=== PATIENT | male | born 1940 | race Caucasian/White ===

== ENCOUNTER → 2020-06-14 11:04 | Outpatient (CLI) | payer MEDICARE, SELFPAY ==
--- NOTE | 2020-06-14 | XR_ITS ---
PROCEDURE: XR KNEE LT 3V CLINICAL INDICATION: PAIN IN LT KNEE COMPARISON: No exams were available for comparison FINDINGS: No fracture or dislocation. No lytic or blastic change. There is normal mineralization. There are mild osteoarthritic changes of the medial compartment and patellofemoral joint. There may be a small knee joint effusion. There is diffuse vascular calcification. Other findings:None. IMPRESSION: Mild osteoarthritic changes Dictated by: Wilian Pollock MD 06/14/2020 11:37 Wilian Pollock MD in [place] 06/14/2020 11:37
--- NOTE | 2020-06-14 | XR_ITS ---
PROCEDURE: XR KNEE RT 3V CLINICAL INDICATION: PAIN IN RT KNEE COMPARISON: No exams were available for comparison FINDINGS: No fracture or dislocation. No lytic or blastic change. There is normal mineralization. Moderate osteoarthritic change medial compartment and patellofemoral joint. Other findings:There is diffuse vascular calcification IMPRESSION: Osteoarthritis Dictated by: Wilian Pollock MD 06/14/2020 11:36 Wilian Pollock MD in [place] 06/14/2020 11:36
== END ==
PROVIDERS: PCP Family Medicine; Visit Provider Family Medicine
DX: M25.562 Pain in left knee (principal); M25.561 Pain in right knee
CPT/HCPCS: 73562

== ENCOUNTER 2020-07-13 11:49 | Emergency (ER) | payer MEDICARE, SELFPAY ==
[2020-07-13 11:50] VITALS: BP 183/86; PULSE 68; RESP 16; TEMP 36.4; O2SAT 100; BMI 28.3
--- NOTE | 2020-07-13 11:54 | HMH.EDGENADL ---
ED Disposition Clinical Impression: Strain of left knee Qualifiers: Encounter type: initial encounter Qualified Code(s): S86.912A - Strain of unspecified muscle(s) and tendon(s) at lower leg level, left leg, initial encounter Disposition: Home, Self-Care Condition on Discharge: Good Instructions: DI for Knee Pain Referrals: Rigo Carvajal MD [Primary Care Provider] - 3 days Time of Disposition: 12:42 - Critical Care Critical Care Time: No Attestation: On , the high probability of a clinically significant, sudden or life threatening deterioration of the following system(s) required my full and direct attention, intervention and personal management. The time I documented below is in addition to time spent performing reported procedures but includes the following listed in this critical care notation. Medical Decision Making - Medical Records Medical records reviewed: Yes: I reviewed the patient's medical records. - Maykel Inquiry Pt receiving controlled substance: No Vital Signs: 07/13/20 11:50 07/13/20 12:01 Temperature 97.6 F Temperature Source Oral Pulse Rate 61 Pulse Rate [Right Radial] 68 Respiratory Rate 16 Blood Pressure 175/96 H Blood Pressure [Right Arm] 183/86 H Blood Pressure Mean 106 Blood Pressure Mean [Right Arm] 118 Blood Pressure Source [Right Arm] Automatic Cuff Blood Pressure Position [Right Arm] Sitting 02 Sat by Pulse Oximetry 100 99 Oxygen Delivery Method Room Air Orders (Tests/Meds): ORDERS Category Date Time Status Knee XR left 3 views [XR knee LT 3V] Stat Exams 07/13/20 12:05 Taken - Radiology Data #1 Image(s): Knee Image Reviewed: Yes I reviewed the patient's radiology results, Yes I reviewed the patient's radiology image Preliminary Findings: Normal/NAD Medical Decision Narrative: 79yo M evaluated for left knee pain. Patient in no acute distress on initial evaluation. Patient is sent for x-rays. X-rays were reviewed by me personally. Per my wet read, no acute findings. Physical exam is unremarkable except for some medial tenderness to palpation. Discussed possible cartilaginous injury, meniscal injury, ligamentous injury. Discussed none of these injuries would show up on a plain film. Encouraged the patient to be as active as tolerable. Patient reports he has a cane at home. Encourage patient to follow-up with his PCP on Thursday. [id number] medications as needed for aches and pains. Patient is appropriate and stable for discharge home at this time General Adult HPI - General Stated complaint: ao 07/13/20 twisted Lt knee Time Seen by Provider: 07/13/20 11:55 Mode of Arrival: Wheelchair - History of Present Illness HPI narrative: 79yo M with known osteoarthritis of the knees presents the emergency department secondary to left knee pain. Patient reports he stepped on a small rock with his left foot that resulted in a twisting injury at his knee. He complains of worse pain with weightbearing. He denies fall. He denies any recent fever, nausea/vomiting/diarrhea. No [id number] medications prior to arrival. - Related Data Home Medications Medication Instructions Recorded Confirmed Celecoxib [CeleBREX 100mg Capsule] 100 mg PO DAILY 07/13/20 07/13/20 Allergies Allergy/AdvReac Type Severity Reaction Status Date / Time Acetaminophen Allergy Unknown Uncoded 03/10/17 14:27 From Penicillin V Potassium Allergy Unknown Uncoded 03/10/17 14:27 Oxycodone Allergy Unknown Uncoded 03/10/17 14:27 Penicillin Allergy Unknown Uncoded 03/10/17 14:27 [facility] History - Hepatitis A Screen Drug use history?: No Attestation statement:: This patient has been screened for Hepatitis A risk factors. I have reviewed the patient's past medical history: Yes Medical History: Denies:: Diabetes Mellitus Type 1, Diabetes Mellitus Type 2 Other Medical History: Reports: Arthritis - Social History Smoking Status: Never smoker Alcohol
[2020-07-13 12:01] VITALS: BP 175/96; PULSE 61; O2SAT 99
--- NOTE | 2020-07-13 12:05 | XR_ITS ---
PROCEDURE: XR KNEE LT 3V CLINICAL INDICATION: pain COMPARISON: CR XR KNEE RT 3V from 06/14/2020 CR XR KNEE LT 3V from 06/14/2020 FINDINGS: No fracture or dislocation. No lytic or blastic change. There is normal mineralization. Mild osteoarthritic changes are present involving all 3 compartments. There appears to be a small suprapatellar effusion. There is generalized vascular calcification. Other findings:None. IMPRESSION: Mild osteoarthritis with small knee joint effusion Dictated by: Wilian Pollock MD 07/13/2020 14:32 Wilian Pollock MD in [place] 07/13/2020 14:32
--- NOTE | 2020-07-13 12:10 | PC.NURSE ---
pt to xray
[2020-07-13 12:52] VITALS: BP 151/76; PULSE 67; RESP 18; TEMP 36.6; O2SAT 100
== END 2020-07-13 12:55 | disposition home or self-care (01) ==
PROVIDERS: Emergency Provider Family Medicine; PCP Family Medicine
DX: S86.912A Strain of unspecified muscle(s) and tendon(s) at lower leg level, left leg, initial encounter (principal); X50.1XXA Overexertion from prolonged static or awkward postures, initial encounter; Y92.89 Other specified places as the place of occurrence of the external cause
CPT/HCPCS: 73562; 99282

== ENCOUNTER 2022-01-15 13:22 | Emergency (ER) | payer MEDICARE, SELFPAY ==
[2022-01-15 13:35] VITALS: BP 210/95; PULSE 64; RESP 18; TEMP 36.6; O2SAT 99; BMI 29.2
--- NOTE | 2022-01-15 13:46 | XR_ITS ---
FINAL REPORT CLINICAL HISTORY: fall FINDINGS: RIGHT ELBOW 2 views were obtained. There is no acute fracture or dislocation. There are mild degenerative changes. There is a calcification adjacent to the posterior olecranon. IMPRESSION: Mild degenerative change with no acute bony abnormality. Reviewed, Interpreted and Dictated by Campos Manjarrez III, MD Transcribed by Odette Mckeon Authenticated and [facility]
--- NOTE | 2022-01-15 13:46 | XR_ITS ---
FINAL REPORT CLINICAL HISTORY: fall FINDINGS: RIGHT SHOULDER: 3 views of the right shoulder belt builder obtained. There is no acute fracture or dislocation. There are mild degenerative changes of the acromioclavicular and glenohumeral joints. There is no soft tissue abnormality. IMPRESSION: Mild degenerative change with no acute bony abnormality. Reviewed, Interpreted and Dictated by Campos Manjarrez III, MD Transcribed by Odette Mckeon Authenticated and [facility]
--- NOTE | 2022-01-15 13:46 | XR_ITS ---
FINAL REPORT CLINICAL HISTORY: fall pain right humerus FINDINGS: RIGHT HUMERUS 2 views were obtained. There is no acute fracture or dislocation. There are mild degenerative changes of the shoulder and elbow. There is no soft tissue abnormality. IMPRESSION: Mild degenerative change with no acute bony abnormality. Reviewed, Interpreted and Dictated by Campos Manjarrez III, MD Transcribed by Odette Mckeon Authenticated and [facility]
--- NOTE | 2022-01-15 13:56 | HMH.EDGENADL ---
Discharge Plan Disposition Patient Disposition: Home, Self-Care Condition: Fair Prescriptions Prescriptions: New acetaminophen 325 mg tablet 325 mg PO Q6H PRN (Reason: fever or pain) Qty: 20 0RF methocarbamol 750 mg tablet 750 mg PO Q8H PRN (Reason: muscle spasm) Qty: 20 0RF No Action celecoxib 100 MG capsule 100 mg PO DAILY Referrals Follow up/Referrals: Rigo Carvajal MD [Primary Care Provider] - See instructions Leonel Mandujano DO [Staff Physician] - See instructions (right shoulder injury) Activity Restrictions/Add. Instructions Additional Instructions/Restrictions: You have been evaluated for shoulder injury after a fall. You likely have a ligamentous injury, sprain or strain. Please take acetaminophen for pain. Robaxin for muscle spasm. Follow-up with your primary care doctor and orthopedics. Wear sling only as needed for comfort. Try to perform gentle stretching exercises. Return to the emergency department at once for any new or worsening symptoms, uncontrolled pain, numbness or weakness in your hand, any other concerns Clinical Impressions Clinical Impression: Shoulder sprain, Injury of right shoulder Instructions Patient Instructions: DI for Shoulder Sprain, DI for Shoulder Pain Discharge ED Provider: Anca Campos Adult HPI General Chief complaint: Extremity Injury, Upper Stated complaint: Fall@home 01/10 RT arm pain Time Seen by Provider: 01/15/22 13:24 Mode of Arrival: Ambulatory Source of Information: Patient and Spouse Limitations: No Limitations Description of Symptoms (Recalled from ER Triage Doc. by RN): pt c/o R arm pain from elbow to shoulder. Pt reports fall thursday of last week, pt reports hit concrete block when he fell. Bruise noted to back of R arm. Pt reports unable to lift RUE unassisted, pt reports pain worsens with movement. Positive radial pulses noted. History of Present Illness HPI narrative: 81-year-old male presenting to the emergency department with right elbow, arm pain. He had a fall on Thursday, 5 days ago. Was walking to his barn when he simply lost his balance and fell, his right shoulder, elbow, upper arm struck a brick wall. He did not hit his head. No loss of consciousness. He had immediate pain near the elbow that was described as sharp and intense. Has been more dull since then. Pain is worse when he tries to raise his arm or extend his elbow. He has been using a homemade sling. Denies any numbness, weakness, tingling in his fingers. No medications prior to arrival. Does not take blood thinners. Related Data Home Medications Medication Instructions Recorded Confirmed celecoxib 100 mg capsule 100 mg PO DAILY ., 07/13/20 10/09/20 Previous Rx's Medication Instructions Recorded acetaminophen 325 mg tablet 325 mg PO Q6H PRN fever or pain 01/15/22 #20 tabs methocarbamol 750 mg tablet 750 mg PO Q8H PRN muscle spasm #20 01/15/22 tabs Allergies Allergy/AdvReac Type Severity Reaction Status Date / Time Acetaminophen Allergy Unknown Uncoded 10/09/20 13:16 From Penicillin V Potassium Allergy Unknown Uncoded 10/09/20 13:16 Oxycodone Allergy Unknown Uncoded 10/09/20 13:16 Penicillin Allergy Unknown Uncoded 10/09/20 13:16 PFSH PFSH Social History Smoking Status: Never smoker alcohol intake: never current occupational status: retired Travel in the last 8 weeks: None ROS Obtained: Yes All systems reviewed & no additional complaints except as documented Constitutional Constitutional: Denies chills, Denies fever(s) and Denies headache(s) ENT Ears, Nose, Mouth, and Throat: Denies dizziness and Denies headache(s) Cardiovascular Cardiovascular: Denies chest pain, Denies dyspnea, Denies lightheadedness and Denies syncope Respiratory Respiratory: Denies dyspnea Gastrointestinal Gastrointestingal: Denies abdominal pain, nausea or vomiting Musculoskeletal Musculoskeletal: Reports arthralgias, Reports limited r
--- NOTE | 2022-01-15 14:06 | PC.NURSE ---
pt in xray
[2022-01-15 14:31] VITALS: BP 184/93; PULSE 57; RESP 18; O2SAT 98
[2022-01-15 15:01] VITALS: BP 172/94; PULSE 54; O2SAT 99
--- NOTE | 2022-01-15 15:22 | PC.NURSE ---
contacted rad to check on status of rad results, states they will check on it for
[2022-01-15 16:31] VITALS: BP 166/96; PULSE 58; RESP 18; O2SAT 99
[2022-01-15 17:03] VITALS: BP 166/69; PULSE 55; RESP 18; TEMP 36.6; O2SAT 99
== END 2022-01-15 17:03 | disposition home or self-care (01) ==
PROVIDERS: Emergency Provider Emergency Medicine; PCP Family Medicine
DX: S43.409A Unspecified sprain of unspecified shoulder joint, initial encounter (principal); W19.XXXA Unspecified fall, initial encounter
CPT/HCPCS: 73030; 73060; 73080; 99283

== ENCOUNTER 2023-07-14 11:05 | Outpatient (POV) | payer MEDICARE, SELFPAY | END 2023-07-14 23:59 | disposition home or self-care (01) | LOC: SC 11:05 | PROVIDERS: PCP Family Medicine; Visit Provider Dermatology | DX: Z00.00 Encounter for general adult medical examination without abnormal findings (principal) ==

== ENCOUNTER 2023-10-20 15:30 | Outpatient (POV) | payer MEDICARE, SELFPAY | END 2023-10-20 23:59 | disposition home or self-care (01) | LOC: SC 15:31 | PROVIDERS: PCP Family Medicine; Visit Provider Dermatology | DX: Z00.00 Encounter for general adult medical examination without abnormal findings (principal) ==

== ENCOUNTER 2023-11-03 14:15 | Outpatient (POV) | payer MEDICARE, SELFPAY | END 2023-11-03 23:59 | disposition home or self-care (01) | LOC: SC 14:16 | PROVIDERS: PCP Family Medicine; Visit Provider Dermatology | DX: Z00.00 Encounter for general adult medical examination without abnormal findings (principal) ==

== ENCOUNTER 2023-12-07 12:46 | Outpatient (CLI) | payer MEDICARE, SELFPAY ==
--- NOTE | 2023-12-07 12:51 | XR_ITS ---
FINAL REPORT CLINICAL HISTORY: right knee pain COMPARISON: 06/14/2020 FINDINGS: AP, lateral and oblique views of the right knee were obtained. There is no acute osseous abnormality of the right knee. Degenerative joint disease is present, most severe in the medial compartment, and has progressed since the prior exam of May 2020. There is no joint effusion. IMPRESSION: Degenerative joint disease is present, most severe in the medial compartment, which has progressed since the prior exam of May 2020. Reviewed, Interpreted and Dictated by Bernice Vásquez MD Transcribed by Ellie Camara Authenticated and [facility]
--- NOTE | 2023-12-07 12:51 | XR_ITS ---
FINAL REPORT CLINICAL HISTORY: Left knee pain COMPARISON: 06/23/2020 FINDINGS: AP, lateral and oblique views of the left knee were obtained. There is no acute osseous abnormality of the left knee. Tricompartment degenerative change is present, most severe in the medial compartment. The degenerative change has progressed since the prior exam. No acute bony abnormality is identified. No joint effusion is present. Vascular calcifications are noted. IMPRESSION: Tricompartment degenerative changes are present, most severe in the medial compartment, which has progressed since the prior exam of June 2020. Reviewed, Interpreted and Dictated by Bernice Vásquez MD Transcribed by Ellie Camara Authenticated and [facility]
== END 2023-12-07 23:59 | disposition home or self-care (01) ==
LOC: RAD 12:47
PROVIDERS: PCP Physician Assistant; Visit Provider Orthopaedic Surgery
DX: M25.561 Pain in right knee (principal); M25.562 Pain in left knee
CPT/HCPCS: 73562